=== PATIENT | male | born 1955 | race Caucasian/White ===

== ENCOUNTER 2021-12-16 07:25 | Day surgery (SDC) | payer OTHER ==
[~2021-12-16] VITALS: Ht 180.3 cm; Wt 71.7 kg
[2021-12-16] MEDS ORDERED: diphenhydrAMINE 50 MG/ML VIAL ONE (08:35)
[2021-12-16] MEDS ORDERED: fentaNYL citrate 0.05 MG/ML VIAL ONE (08:35)
[2021-12-16] MEDS ORDERED: MIDAZOLAM 5 MG/5 ML VIAL ONE (08:36)
[2021-12-16] MEDS ORDERED: diphenhydrAMINE 50 MG/ML VIAL IVP ONE (12:00)
[2021-12-16] MEDS ORDERED: fentaNYL citrate 0.05 MG/ML VIAL IVP ONE (12:00)
[2021-12-16] MEDS ORDERED: MIDAZOLAM 2 MG/2 ML VIAL IVP ONE (12:00)
== END 2021-12-16 10:00 | disposition home or self-care (01) ==
LOC: MOR 07:25 → MMU 07:26 → MOR 10:00
PROVIDERS: ATTEND Internal Medicine Gastroenterology
DX: Z12.11 Encounter for screening for malignant neoplasm of colon (principal); D12.2 Benign neoplasm of ascending colon; D12.8 Benign neoplasm of rectum; K76.0 Fatty (change of) liver, not elsewhere classified; R74.01 Elevation of levels of liver transaminase levels; E11.9 Type 2 diabetes mellitus without complications; Z87.891 Personal history of nicotine dependence; Z79.899 Other long term (current) drug therapy; Z20.822 Contact with and (suspected) exposure to COVID-19
CPT/HCPCS: 45380; 45385; 87426; 88305; J1200; J2250; J3010

== ENCOUNTER 2022-02-03 06:42 | Day surgery (SDC) | payer OTHER ==
[~2022-02-03] VITALS: Ht 180.3 cm; Wt 71.7 kg
[2022-02-03] MEDS ORDERED: fentaNYL citrate 0.05 MG/ML VIAL ONE ×2 (08:17)
[2022-02-03] MEDS ORDERED: diphenhydrAMINE 50 MG/ML VIAL ONE (08:17)
[2022-02-03] MEDS ORDERED: LIDOCAINE 2% 100 MG/5 ML UJET TP ONE (08:17)
[2022-02-03] MEDS ORDERED: MIDAZOLAM 5 MG/5 ML VIAL ONE (08:17)
[2022-02-03] MEDS ORDERED: SIMETHICONE 40 MG/0.6 ML ONE (09:15)
[2022-02-03] MEDS ORDERED: EPINEPHrine PFS 0.1 MG/ML SYR IVP ONE (09:15)
[2022-02-03] MEDS ORDERED: MIDAZOLAM 5 MG/5 ML VIAL IV ONE (13:25)
[2022-02-03] MEDS ORDERED: diphenhydrAMINE 50 MG/ML VIAL IVP ONE (13:25)
[2022-02-03] MEDS ORDERED: fentaNYL citrate 0.05 MG/ML VIAL IVP ONE (13:25)
== END 2022-02-03 09:55 | disposition home or self-care (01) ==
LOC: MDS 06:42 → MMU 06:42 → MDS 09:55
PROVIDERS: ATTEND Internal Medicine Gastroenterology
DX: Z12.11 Encounter for screening for malignant neoplasm of colon (principal); D12.2 Benign neoplasm of ascending colon; D12.3 Benign neoplasm of transverse colon; D12.4 Benign neoplasm of descending colon; E11.9 Type 2 diabetes mellitus without complications; Z87.891 Personal history of nicotine dependence; K76.0 Fatty (change of) liver, not elsewhere classified; R74.01 Elevation of levels of liver transaminase levels; Z79.899 Other long term (current) drug therapy
CPT/HCPCS: 45381; 45385; 87426; J0171; J1200; J2250; J3010

== ENCOUNTER 2023-11-04 09:37 | Day surgery (SDC) | payer OTHER ==
[~2023-11-04] VITALS: Ht 180.3 cm; Wt 71.7 kg
[2023-11-04] MEDS ORDERED: MIDAZOLAM 2 MG/2 ML VIAL ONE (11:23)
[2023-11-04] MEDS: fentaNYL citrate 0.05 MG/ML VIAL ONE (11:44)
== END 2023-11-04 13:25 | disposition home or self-care (01) ==
LOC: MDS 09:37 → MMU 09:38 → MDS 13:25
PROVIDERS: ATTEND Internal Medicine Gastroenterology
DX: Z12.11 Encounter for screening for malignant neoplasm of colon (principal); K63.5 Polyp of colon; Z86.010 Personal history of colon polyps; I10 Essential (primary) hypertension
CPT/HCPCS: 45385; 82948; J2250; J3010